=== PATIENT | male | born 1975 | race Caucasian/White ===

== ENCOUNTER → 2021-02-22 | Outpatient (CLI) | payer BC | LOC: KOH-I 08:27 | DX: M25.511 Pain in right shoulder (principal) | CPT/HCPCS: 73030 ==

== ENCOUNTER → 2021-12-13 | Outpatient (CLI) | payer BC, OTHER | LOC: KOH-I 11:28 | DX: M79.674 Pain in right toe(s) (principal); M79.89 Other specified soft tissue disorders | CPT/HCPCS: 73660 ==